=== PATIENT | male | born 1945 | race Caucasian/White ===

== ENCOUNTER 2024-06-27 13:45 | Emergency (ER) | payer MEDICARE, SELFPAY ==
[2024-06-27 14:22] VITALS: BP 152/84; PULSE 87; TEMP 36.6; O2SAT 95; BMI 35.4
[2024-06-27 15:04] LABS: Basophils Absolute Auto 0.1 10^3/uL (0.0-0.1); Basophils Percent Auto 1.1 % (0.2-2.0); Eosinophils Absolute Auto 0.3 10^3/uL (0.0-0.7); Eosinophils Percent Auto 3.9 % (0.9-7.0); Hematocrit 46.7 % (42.0-54.0); Hemoglobin 15.2 g/dL (14.0-18.0); Immature Granulocytes Abs Auto 0.01 10^3/uL (0.00-0.03); Immature Granulocytes Pct Auto 0.1 % (0.0-0.5); Lymphocytes Absolute Auto 1.9 10^3/uL (1.2-3.8); Lymphocytes Percent Auto 22.7 % (20.5-60.0); Mean Corpuscular HGB Conc 32.5 g/dL (29.9-35.2); Mean Corpuscular Hemoglobin 30.6 pg (25.9-34.0); Mean Corpuscular Volume 94.2 fL (80.0-94.0); Monocytes Absolute Auto 0.7 10^3/uL (0.3-0.8); Monocytes Percent Auto 7.6 % (1.7-12.0); Neutrophils Absolute Auto 5.5 10^3/uL (1.4-6.5); Neutrophils Percent Auto 64.6 % (43.0-75.0); Platelet Count 246 10^3/uL (150-450); Red Blood Count 4.96 10^6/uL (4.70-6.10); Red Cell Distribution Width 13.2 % (11.0-15.0); White Blood Count 8.5 10^3/uL (4.0-11.0)
[2024-06-27 15:18] LABS: INR 1.01; Prothrombin Time 10.7 sec (9.0-11.6)
[2024-06-27 15:24] LABS: Alanine Aminotransferase 30 U/L (16-63); Albumin Globulin Ratio 1.1; Albumin Level 3.5 g/dL (3.4-5.0); Alkaline Phosphatase 65 U/L (46-116); Anion Gap 9.9; Aspartate Amino Transferase 16 U/L (15-37); BUN Creatinine Ratio 16.7; Bilirubin Total 0.4 mg/dL (0.2-1.0); Calcium 9.2 mg/dL (8.5-10.1); Carbon Dioxide 33.2 mmol/L (21.0-32.0); Chloride 104 mmol/L (98-107); Estimated GFR (African America >60 (>=60 mL/min/1.73m^2); Estimated GFR (Non-African Ame >60 (>=60 mL/min/1.73m^2); Globulin 3.2 g/dL; Glucose 95 mg/dL (74-106); Potassium 4.1 mmol/L (3.5-5.1); Sodium 143 mmol/L (136-145); Total Protein 6.7 g/dL (6.4-8.2); Troponin I High Sensitivity 41.6 pg/mL (4.0-76.1)
--- NOTE | 2024-06-27 15:29 | ED.GIBLEED1 ---
HPI - GI Bleed General Chief complaint: GI Bleed Stated complaint: BLOOD IN STOOL Time Seen by Provider: 06/27/24 14:36 Source: patient Mode of arrival: walk-in History of Present Illness HPI Narrative: 78-year-old male with history of diabetes type 2 is coming to the ER with a lower GI bleed for the last few hours, the patient notes that 3 times He denies any dizziness or any other concerns Patient does have history of diverticulosis Patient denies any abdominal pain Related Data Home Medications ?Medication ?Instructions ?Recorded ?Confirmed aspirin 81 mg capsule 81 mg PO DAILY 06/27/24 06/27/24 glyburide 2.5 mg tablet mg 06/27/24 lisinopril 20 mg tablet 20 mg PO DAILY 06/27/24 06/27/24 metformin 1,000 mg tablet 1,000 mg PO BID 06/27/24 06/27/24 Allergies Allergy/AdvReac Type Severity Reaction Status Date / Time No Known Drug Allergies Allergy Verified 06/27/24 14:21 Review of Systems ROS Status of ROS 10 or more systems reviewed and unremarkable except as noted in history and below PFSH PFSH Social History Little interest or pleasure in doing things: not at all Feeling down, depressed, or hopeless: not at all Exam Narrative Exam Narrative: Nurses notes and vital signs reviewed and patient is not hypoxic. General: Well-appearing and in no apparent distress. Skin: Warm, dry, no pallor noted. No rash. Head: Normocephalic, atraumatic. Neck: Supple, non-tender. Eye: Pupils are equal, round and EOMI. No scleral icterus. Ears, Nose, Mouth, and Throat: TM are clear, no nasal mucosal hypertrophy. Oral mucosa is moist, no posterior oropharynx erythema, uvula is mid-line Cardiovascular: Regular Rate and Rhythm without murmur, gallop or rub. Respiratory: No accessory muscle use or respiratory distress. Lungs are clear to auscultation, no wheezing, rales or rhonchi Chest Wall: no tenderness Back: No midline thoracic or lumbar vertebral tenderness. No CVA tenderness Musculoskeletal: normal ROM, no calf or popliteal tenderness, no lower extremity edema/swelling GI: Abdomen is soft, non-distended. Normal bowel sounds. No masses appreciated. No tenderness to palpation. No rebound, guarding, or rigidity noted. Neurological: A&O x4. No cranial nerve dysfunction observed. No truncal ataxia. Moves all extremities. Sensation intact. Psychiatric: Cooperative and interactive. Normal mood and affect. Rectal exam: The patient have no active bleeding no hemorrhoids but he did had some dried blood on the rectal exam Constitutional Vital Signs, click to edit/add: Last Vital Signs Temp 97.9 F 06/27/24 14:22 Pulse 87 06/27/24 14:22 Resp 18 06/27/24 14:22 BP 152/84 H 06/27/24 14:22 Pulse Ox 95 06/27/24 14:22 O2 Del Method Room Air 06/27/24 14:22 Course Vital Signs Vital signs: Vital Signs Temperature 97.9 F 06/27/24 14:22 Pulse Rate 87 06/27/24 14:22 Respiratory Rate 18 06/27/24 14:22 Blood Pressure 152/84 H 06/27/24 14:22 Pulse Oximetry 95 06/27/24 14:22 Oxygen Delivery Method Room Air 06/27/24 14:22 Temperature 97.9 F 06/27/24 14:22 Pulse Rate 87 06/27/24 14:22 Respiratory Rate 18 06/27/24 14:22 Blood Pressure 152/84 H 06/27/24 14:22 Pulse Oximetry 95 06/27/24 14:22 Oxygen Delivery Method Room Air 06/27/24 14:22 MDM - GI Bleed MDM Narrative Medical decision making narrative: The patient is vitally stable He was monitored in the ER at least for 2 hours during which he did not have any bleeding Hemoglobin today is 15 the rest of the blood workup showed no acute significant pathology Right now the patient initially was planned to be admitted for revision but the patient did not want to be admitted he just wanted to be monitored and he will monitor himself at home He does not take any blood thinner and he will be holding the aspirin the patient will come back tomorrow to recheck his hemoglobin The patient also instructed about coming back in case of dizziness or any increasing symptoms The patient is to follow up with primary care physician in next 2-3 days or to return to the emergency department should any of the signs or symptoms worsen or new symptoms develop. The patient agrees with the following Diagnosis and Treatment plan and the patient will be discharged home. Lab Data Labs: Lab Results 06/27/24 Range/Units 14:50 WBC 8.5 (4.0-11.0) 10^3/uL RBC 4.96 (4.70-6.10) 10^6/uL Hgb 15.2 (14.0-18.0) g/dL Hct 46.7 (42.0-54.0) % MCV 94.2 H (80.0-94.0) fL MCH 30.6 (25.9-34.0) pg MCHC 32.5 (29.9-35.2) g/dL RDW 13.2 (11.0-15.0) % Plt Count 246 (150-450) 10^3/uL MPV 10.0 (9.5-13.5) fL Neut % (Auto) 64.6 (43.0-75.0) % Lymph % (Auto) 22.7 (20.5-60.0) % [place] % (Auto) 7.6 (1.7-12.0) % Eos % (Auto) 3.9 (0.9-7.0) % Baso % (Auto) 1.1 (0.2-2.0) % Neut # (Auto) 5.5 (1.4-6.5) 10^3/uL Lymph # (Auto) 1.9 (1.2-3.8) 10^3/uL [place] # (Auto) 0.7 (0.3-0.8) 10^3/uL Eos # (Auto) 0.3 (0.0-0.7) 10^3/uL Baso # (Auto) 0.1 (0.0-0.1) 10^3/uL Abs Immat Gran (auto) 0.01 (0.00-0.03) 10^3/uL Imm/Tot Granulo (auto) 0.1 (0.0-0.5) % PT 10.7 (9.0-11.6) sec INR 1.01 Sodium 143 (136-145) mmol/L Potassium 4.1 (3.5-5.1) mmol/L Chloride 104 (98-107) mmol/L Carbon Dioxide 33.2 H (21.0-32.0) mmol/L Anion Gap 9.9 BUN 19.0 H (7.0-18.0) mg/dL Creatinine 1.14 (0.70-1.30) mg/dL Est GFR ( Amer) >60 (>=60 mL/min/1.73m^2) Est GFR (Non-Af Amer) >60 (>=60 mL/min/1.73m^2) BUN/Creatinine Ratio 16.7 Glucose 95 (74-106) mg/dL Calcium 9.2 (8.5-10.1) mg/dL Total Bilirubin 0.4 (0.2-1.0) mg/dL AST 16 (15-37) U/L ALT 30 (16-63) U/L Alkaline Phosphatase 65 (46-116) U/L Troponin I High Sens 41.6 (4.0-76.1) pg/mL Total Protein 6.7 (6.4-8.2) g/dL Albumin 3.5 (3.4-5.0) g/dL Globulin 3.2 g/dL Albumin/Globulin Ratio 1.1 Stool Occult Blood Positive A Blood Type O Positive Antibody Screen Negative Discharge Plan Discharge Chief Complaint: GI Bleed Clinical Impression: Diverticular hemorrhage Patient Disposition: Home, Self-Care Time of Disposition Decision: 15:41 Condition: Good Prescriptions / Home Meds: No Action glyburide 2.5 mg tablet lisinopril 20 mg tablet 20 mg PO DAILY metformin 1,000 mg tablet 1,000 mg PO BID aspirin 81 mg capsule 81 mg PO DAILY Print Language: [place] Instructions: Rectal Bleeding (ED), Diverticulosis (ED) Additional Instructions: please follow up tmrw with PCP of with us for blood test and recheck Referrals: LINDA CAMPBELL [Primary Care Provider] - 1 week Discharge Date/Time: 06/27/24 16:24
[2024-06-27 15:38] LABS: Internal Control Within Normal Limits; Occult Blood Positive
== END 2024-06-27 16:24 | disposition home or self-care (01) ==
PROVIDERS: Emergency Provider Emergency Medicine; PCP Nurse Practitioner
DX: K57.91 Diverticulosis of intestine, part unspecified, without perforation or abscess with bleeding (principal); E11.9 Type 2 diabetes mellitus without complications; Z79.84 Long term (current) use of oral hypoglycemic drugs; Z79.82 Long term (current) use of aspirin
CPT/HCPCS: 36415; 80053; 84484; 85025; 85610; 86850; 86900; 86901; 99284; G0328